=== PATIENT | male | born 1950 | race Hispanic/Latino ===

== ENCOUNTER → 2023-02-11 | Outpatient (CLI) | payer MEDICARE ==
[~2023-02-11] MED LIST: IOHEXOL 350 MG/ML 100ML INFUS..BTL IV ONE
== END | disposition home or self-care (01) ==
LOC: RAH 07:29 → EDUNIT# 08:00
PROVIDERS: ATTEND Internal Medicine Cardiovascular Disease
DX: I65.23 Occlusion and stenosis of bilateral carotid arteries (principal)
CPT/HCPCS: 70496; 71275; 70498; Q9967

== ENCOUNTER 2023-03-12 07:54 | Day surgery (SDC) | payer MEDICARE ==
[2023-03-10 11:41] VITALS: BP 142/58
[2023-03-10 11:44] LABS: BASOPHILS % (AUTO) 0.3 % (0.0-5.0); EOSINOPHILS % (AUTO) 1.3 % (0.0-8.0); LYMPHOCYTES % (AUTO) 33.6 % (21.0-51.0); MEAN CORPUSCULAR HEMOGLOBIN 28.8 pg (27.0-33.0); MEAN CORPUSCULAR HGB CONC 33.3 g/dL (32.0-36.0); MEAN CORPUSCULAR VOLUME 86.7 fL (79-99); MONOCYTES % (AUTO) 11.2 % (3.0-13.0); NEUTROPHILS % (AUTO) 53.1 % (40.0-77.0); PLATELET COUNT (AUTO) 214 K/uL (130-400); RED BLOOD CELL COUNT(AUTO) 4.96 MIL/uL (4.50-6.20); WHITE BLOOD COUNT (AUTO) 7.7 K/uL (4.8-10.8)
[2023-03-10 12:05] LABS: INR 0.96 (0.85-1.15); PROTHROMBIN TIME 10.5 SEC (9.6-11.6)
[2023-03-10 12:06] LABS: PARTIAL THROMBOPLASTIN TIME 27.4 SEC (26.3-35.5)
[2023-03-10 12:14] LABS: CREATININE 0.9 mg/dL (0.5-1.5)
[~2023-03-12] VITALS: Ht 165.1 cm; Wt 75.7 kg
[2023-03-12] VITALS (9 sets, daily range): BP systolic 125–165; BP diastolic 58–80
[~2023-03-12 07:54] MED LIST changes: +AEC81 PO; +ALOG25TA2 PO; +AMLO-257 PO; +ATOR40TA69 PO; +CARB15DR OP; +CHOL100053 PO; +EMPA25TA PO; +GLIP10TA9 PO; -IOHEXOL 350 MG/ML 100ML INFUS..BTL IV ONE; +ISOS30TA92 PO; +LISI20TA24 PO; +LISI40TA9 PO; +METF-446 PO; +METO-409 PO; +NITR0.4T50 SL; +TICA90TA PO
[2023-03-12] MEDS ORDERED: 0.9%NACL 1000ML 1,000 ML IV ONE (09:02)
[2023-03-12] MEDS ORDERED: IOHEXOL-350 50ML VIAL IV ONE (10:26)
[2023-03-12] MEDS ORDERED: MIDAZOLAM HCL 1 MG/ML 2ML VIAL ONE (10:26)
[2023-03-12] MEDS ORDERED: LIDOCAINE HCL 400MG/20ML VIAL ONE (10:26)
[2023-03-12] MEDS ORDERED: IOHEXOL 350 MG/ML 100ML INFUS..BTL IV ONE (10:26)
[2023-03-12] MEDS ORDERED: FENTANYL CITRATE PF 50 MCG/1 ML 2ML VIAL ONE (10:26)
[2023-03-12] MEDS ORDERED: NITROGLYCERIN 50MG VIAL ONE (10:26)
[2023-03-12] MEDS ORDERED: HEPARIN 10,000 UNIT/10ML (1,000 UNIT/ML) VIAL ONE (10:26)
[2023-03-12] MEDS ORDERED: BIVALIRUDIN 250 MG/VIAL IV ONE (10:27)
[2023-03-12] MEDS ORDERED: NICARDIPINE 25MG INJ IV ONE (10:46)
[2023-03-12] MEDS ORDERED: GLUCAGON 1MG KIT 1 MG ML IM PRN (12:30)
[2023-03-12] MEDS ORDERED: DEXTROSE 50%-WATER 50 ML DISP.SYRIN IV PRN (12:30)
[2023-03-12] MEDS ORDERED: 0.9%NACL 1000ML 1,000 ML IV SCH (12:30)
[2023-03-12] MEDS ORDERED: ATROPINE 1MG SYG IVP ONE (12:56)
[2023-03-12] MEDS ORDERED: INSULIN HUMULIN R 100 UNIT/ML 3ML SQ SCH (16:30)
== END 2023-03-12 16:50 | disposition home or self-care (01) ==
LOC: DAH 07:54
PROVIDERS: ATTEND Internal Medicine Cardiovascular Disease
DX: I25.110 Atherosclerotic heart disease of native coronary artery with unstable angina pectoris (principal); I65.23 Occlusion and stenosis of bilateral carotid arteries; I10 Essential (primary) hypertension; E78.5 Hyperlipidemia, unspecified; E11.9 Type 2 diabetes mellitus without complications; I25.5 Ischemic cardiomyopathy; I73.9 Peripheral vascular disease, unspecified; I25.2 Old myocardial infarction; Z79.01 Long term (current) use of anticoagulants; Z79.899 Other long term (current) drug therapy; Z79.82 Long term (current) use of aspirin; Z95.1 Presence of aortocoronary bypass graft; Z86.73 Personal history of transient ischemic attack (TIA), and cerebral infarction without residual deficits; Z90.49 Acquired absence of other specified parts of digestive tract; Z98.890 Other specified postprocedural states
CPT/HCPCS: 80048; 85025; 85610; 85730; 36415; 71045; 93005; 93455; 36223; 75710; 82948; C1887 ×2; C1769 ×3; C1894 ×3; Q9965 ×2; J3010; J3490 ×3; J7030; J1644 ×2; J2250; Q9967; A4215; A4222; A4221; A4663; A4216; A4606; A4223 ×3; 99156; 99157; J0461; J0583

== ENCOUNTER 2025-04-22 22:25 | Inpatient (IN) | payer MEDICARE ==
[~2025-04-22] VITALS: Ht 165.1 cm; Wt 81.8 kg
[~2025-04-22 22:25] MED LIST changes: -CARB15DR OP; -EMPA25TA PO; +GLIP10TA16 PO; -GLIP10TA9 PO; -LISI40TA9 PO; -NITR0.4T50 SL
[2025-04-22 23:05] LABS: BASOPHILS # (AUTO) 0.02 K/uL (0.00-0.20); BASOPHILS % (AUTO) 0.3 % (0.0-5.0); EOSINOPHILS % (AUTO) 2.8 % (0.0-8.0); HEMATOCRIT 45.1 % (42-54); IMMATURE GRANULOCYTE ABSOLUTE 0.02 K/uL (0-1); MEAN CORPUSCULAR HEMOGLOBIN 29.1 pg (27.0-33.0); MEAN CORPUSCULAR HGB CONC 33.3 g/dL (32.0-36.0); MEAN CORPUSCULAR VOLUME 87.4 fL (79-99); MONOCYTES # (AUTO) 0.8 K/uL (0.1-1.0); NEUTROPHILS # (AUTO) 3.1 K/uL (1.8-7.7); NEUTROPHILS % (AUTO) 43.6 % (40.0-77.0); PLATELET COUNT (AUTO) 205 K/uL (130-400); RED BLOOD CELL COUNT(AUTO) 5.16 MIL/uL (4.50-6.20); RED CELL DISTRIBUTION WIDTH 14.6 % (11.0-15.5); WHITE BLOOD COUNT (AUTO) 7.1 K/uL (4.8-10.8)
--- NOTE | 2025-04-22 23:28 | ERN ---
General Chief Complaint: Chest Pain Stated Complaint: CHEST PAIN Time Seen by MD: 22:27 History of Present Illness Initial Comments 75-year-old male who presents for chest pains on and off for the last few days. He reports an epigastric pain that radiates to the lower chest. The pain waxes and wanes. It is nonexertional. He reports that he mostly feels it at night when he lies down. He reports that he thought it was indigestion, but it has since it has been pretty consistent over the last few days he wants to get this checked out. He does have a significant history of CAD status post CABG, hypertension, dyslipidemia, diabetes. He denies any recent dyspnea shortness of breath or dizziness. He has been in his normal state of health otherwise. No cough congestion or fevers. His design manager is Dr. Carroll. Allergies: Coded Allergies: lorazepam (Unverified Allergy, Unknown, 03/10/23) Home Meds Reported Medications Ticagrelor (Brilinta) 90 Mg Tablet, 90 MG PO BID, TAB 08/02/23 Isosorbide Mononitrate (Isosorbide Mononitrate ER) 30 Mg Tab.er.24h, 30 MG PO DAILY, TAB 03/11/23 Alogliptin Benzoate (Alogliptin) 25 Mg Tablet, 25 MG PO DAILY, TAB 03/11/23 Atorvastatin Calcium (LIPITOR) 40 Mg Tablet, 40 MG PO HS, TAB 03/11/23 Cholecalciferol (Vitamin D3) (Vitamin D3) 250 Mcg (56172 Unit) Capsule, 250 MCG PO QWEEK, CAP 03/11/23 Lisinopril (Lisinopril) 20 Mg Tablet, 20 MG PO BID, TAB 03/11/23 Metformin HCl (Metformin HCl) 1,000 Mg Tablet, 1000 MG PO BID, TAB 03/11/23 Glipizide (Glipizide) 10 Mg Tablet, 10 MG PO BID, TAB 03/11/23 Aspirin (ASPIRIN 81 MG ECTAB) 81 Mg Ectab, 81 MG PO DAILY, TAB.EC 03/11/23 Amlodipine Besylate (Amlodipine Besylate) 5 Mg Tablet, 5 MG PO BID, TAB 03/11/23 Metoprolol Succinate (Metoprolol Succinate) 100 Mg Tab.er.24h, 100 MG PO DAILY, TAB 03/11/23 Past Medical History Past Medical History: Diabetes-Type II, High Cholesterol, Heart Disease, Hypertension Past Surgical History: CABG, Other Surgical History Other: CARDIAC STENTS ROS Dictation CONSTITUTIONAL: No chills, no fever, no weakness, no diaphoresis, no malaise. HEAD/FACE: No signs of trauma. EENT: No eye pain, no blurred vision, no tearing, no double vision, no ear pain, no ear discharge, no nose pain, no nasal congestion, no throat pain, no throat swelling, no mouth pain. RESPIRATORY: No cough, no orthopnea, no SOB, no stridor, no wheezing. CARDIOVASCULAR: Chest pain GASTROINTESTINAL/ABDOMINAL: No abdominal pain, no constipation, no diarrhea, no nausea, no vomiting. GENITOURINARY: No abnormal discharge, no dysuria, no frequent urination, no hematuria. No complaints of pain in the genitals. MUSCULOSKELETAL: No back pain, no gout, no joint pain, no joint swelling, no muscle pain, no muscle stiffness, no neck pain. INTEGUMENTARY: No change in color, no change in hair/nails, no dryness, no lesion, no lumps, no rash. NEUROLOGICAL/PSYCH: No anxiety, not depressed, no emotional problem, no headache, no numbness, no pre-existing deficit, no history of seizures, no tremors, no weakness. HEMATOLOGIC/LYMPHATIC: Not anemic, no history of blood clots, no apparent bleeding, no bruising, glands not swollen. All Systems Negative, Except as Noted. Physical Exam Physical Exam Dictation VITAL SIGNS: Reviewed. GENERAL APPEARANCE: Alert, oriented x3, no acute distress. HEAD AND FACE: Non-traumatic. EYES: PERRL, pink conjunctivas, eyelid no trauma, anterior chamber clear. EARS: Pinnas intact and no signs of trauma or erythema. Ear canals clear and no discharge. TMs no erythema. NOSE: No discharge, no bleeding. OROPHARYNX: Mouth normal, teeth no caries, tongue pink. Pharynx clear, no erythema. Tonsils no exudates, no abscesses noted. Mucous membrane moist. NECK: Supple, non-tender, no thyromegaly, no masses, no JVD, no bruits. BREAST: Deferred. CHEST: No tenderness, no crepitus, no paradoxical movement, no retractions. LUNGS: Clear, well-ventilated, symmetric, no rales, no wheezing, no rhonchi, no stridor, good breath sounds bilaterally. HEART: Regular rate, regular rhythm, no murmur, no gallops. VASCULAR: No peripheral edema. ABDOMEN: Soft, positive bowel sounds, nondistended, no guarding, nontender, no rebound, no masses no hepatomegaly, no splenomegaly, no Nguyen's sign, no hernias. RECTAL: Deferred. GENITAL: Deferred. NEUROLOGICAL: Normal speech, gross motor function intact, gross sensory function intact. MUSCULOSKELETAL: Neck nontender, full range of motion, back nontender, full range of motion. EXTREMITIES: Nontender, full range of motion. SKIN: Color pink, dry, no turgor, no rash, no lacerations, no abrasions, no contusions. LYMPHATICS: Deferred. Results Laboratory and Microbiology Lab and Micro Result Laboratory Tests Test 04/22/25 22:57 04/22/25 23:38 White Blood Count 7.1 K/uL (4.8-10.8) 7.1 K/uL (4.8-10.8) Red Blood Count 5.16 MIL/uL (4.50-6.20) 4.81 MIL/uL (4.50-6.20) Hemoglobin 15.0 g/dL (14.0-18.0) 14.1 g/dL (14.0-18.0) Hematocrit 45.1 % (42-54) 42.1 % (42-54) Mean Corpuscular Volume 87.4 fL (79-99) 87.5 fL (79-99) Mean Corpuscular Hemoglobin 29.1 pg (27.0-33.0) 29.3 pg (27.0-33.0) Mean Corpuscular Hemoglobin Concent 33.3 g/dL (32.0-36.0) 33.5 g/dL (32.0-36.0) Red Cell Distribution Width 14.6 % (11.0-15.5) 14.6 % (11.0-15.5) Platelet Count 205 K/uL (130-400) 195 K/uL (130-400) Mean Platelet Volume 9.9 fL (7.5-10.5) 10.0 fL (7.5-10.5) Immature Granulocyte % (Auto) 0.3 % (0-1) 0.3 % (0-1) Neutrophils (%) (Auto) 43.6 % (40.0-77.0) 46.5 % (40.0-77.0) Lymphocytes (%) (Auto) 42.0 % (21.0-51.0) 39.2 % (21.0-51.0) Monocytes (%) (Auto) 11.0 % (3.0-13.0) 10.8 % (3.0-13.0) Eosinophils (%) (Auto) 2.8 % (0.0-8.0) 2.8 % (0.0-8.0) Basophils (%) (Auto) 0.3 % (0.0-5.0) 0.4 % (0.0-5.0) Neutrophils # (Auto) 3.1 K/uL (1.8-7.7) 3.3 K/uL (1.8-7.7) Lymphocytes # (Auto) 3.0 K/uL (1.0-4.8) 2.8 K/uL (1.0-4.8) Monocytes # (Auto) 0.8 K/uL (0.1-1.0) 0.8 K/uL (0.1-1.0) Eosinophils # (Auto) 0.20 K/uL (0.00-0.70) 0.20 K/uL (0.00-0.70) Basophils # (Auto) 0.02 K/uL (0.00-0.20) 0.03 K/uL (0.00-0.20) Absolute Immature Granulocyte (auto 0.02 K/uL (0-1) 0.02 K/uL (0-1) Nucleated Red Blood Cells 0.0 % (0.0-0.19) 0.0 % (0.0-0.19) Sodium Level 139 mmol/L (136-145) Potassium Level 3.8 mmol/L (3.5-5.1) Chloride Level 104 mmol/L (101-111) Carbon Dioxide Level 23 mmol/L (21-32) Blood Urea Nitrogen 15 mg/dL (7-18) Creatinine 1.0 mg/dL (0.5-1.3) Glomerular Filtration Rate Calc 79 mL/min (>90) Random Glucose 174 mg/dL (70-105) H Total Calcium 9.1 mg/dL (8.5-10.1) Total Bilirubin 0.3 mg/dL (0.2-1.0) Direct Bilirubin 0.1 mg/dL (0.0-0.3) Aspartate Amino Transf (AST/SGOT) 11 U/L (10-37) Alanine Aminotransferase (ALT/SGPT) 23 U/L (12-78) Alkaline Phosphatase 89 U/L (50-136) Total Creatine Kinase 118 U/L (21-232) Troponin I High Sensitivity 119 ng/L (4-75) *H 116 ng/L (4-75) *H MB-Fxt-F-Type Natriuretic Peptide 415 pg/mL (0-125) H Total Protein 7.1 g/dL (6.0-8.3) Albumin 4.0 g/dL (3.5-5.0) Lipase 43 U/L (16-77) Activated Partial Thromboplast Time 25.4 SEC (26.3-35.5) L MDM CC: Chest pain Historian: Patient Comorbidities: CAD status post CABG, hypertension, dyslipidemia, diabetes Limitations by social determinants of health: None Differential diagnosis: ACS, indigestion, biliary disease, other. Vital signs: Blood pressure 182/78, respiratory rate of 18, pulse 69, temp 97.7. EKG: Sinus rhythm, rate 71, left axis deviation, left bundle branch block morphology, LVH, Sgarbossa criteria negative, no STEMI. Independently interpre estelle by me. Repeat EKG: Sinus rhythm, rate 64, left axis deviation, left bundle-branch block morphology. LVH. No STEMI. Sgarbossa negative. No changes from previous. Independently interpreted by me. Labs (independently ordered and interpreted by me): Normal CBC. Troponin elevated 119. Electrolytes are stable glucose is stable liver enzymes are stable. Pro BNP mildly elevated. Repeat troponin remained stable. Patient has high-risk, heart score of five. Treatment in ED: Oral aspirin, IV heparin protocol started. Given Maalox. Plan: Admit cardiology workup. ED Course Orders Procedure Category Date Status Time Vital Signs Per CPOE 04/22/25 Transmitted Routine 22:29 Chest 1vw RAD 04/22/25 Taken 22:29 12 Lead Ekg Tracing- EKG 04/22/25 Logged Technical 22:29 Oxygen By Nc/Pulse Ox CPOE 04/22/25 Transmitted 22:29 Maintain Iv CPOE 04/22/25 Transmitted 22:29 Iv Insertion CPOE 04/22/25 Transmitted 22:29 Cardiac Monitoring CPOE 04/22/25 Transmitted 22:29 Pulse Oximetry With CPOE 04/22/25 Transmitted Vs And Prn 22:29 Cbc With Differential LAB 04/22/25 Complete 22:29 Activity: Br W/Brp CPOE 04/22/25 Transmitted With Assist 22:29 Creatine Kinase, Total LAB 04/22/25 Complete 22:29 Troponin I High LAB 04/22/25 Complete Sensitivity 22:29 Urinalysis Profile LAB 04/22/25 Logged 22:29 Basic Metabolic Panel LAB 04/22/25 Complete 22:29 Aspirin 325mg Tab PHA 04/22/25 Complete (Aspirin 325mg Tab) 23:00 Mag/Alum/Simeth 30ml PHA 04/22/25 Complete (Maalox Plus 30ml) 23:00 Hepatic Function Panel LAB 04/22/25 Complete 22:43 Lipase LAB 04/22/25 Complete 22:43 Probnp LAB 04/22/25 Complete 22:57 12 Lead Ekg Tracing- EKG 04/22/25 Logged Technical 23:12 Initiate Heparin JAYY 04/22/25 In Process Treatment Pro 23:25 Cbc With Differential LAB 04/22/25 Complete 23:25 Cbc With Differential LAB 04/23/25 In Process 04:00 Cbc With Differential LAB 04/26/25 Verified 04:00 Cbc With Differential LAB 04/29/25 Verified 04:00 Partial LAB 04/22/25 Complete Thromboplastin Time 23:25 Heparin 5,000 Unit PHA 04/23/25 In Process Vial (Heparin 5,000 U 00:30 Heparin 25,000 PHA 04/23/25 In Process Units/250ml D5w 00:30 Heparin Protocol CPOE 04/22/25 Transmitted Monitoring 23:25 Troponin I High LAB 04/22/25 Complete Sensitivity 23:26 Heparin 5,000 Unit PHA 04/22/25 Complete Vial (Heparin 5,000 U 23:30 Pt And Ptt LAB 04/23/25 Logged 05:45 Current Medications Medications (Trade) Dose Ordered Sig/Balwinder Route PRN Reason Start Time Stop Time Status Last Admin Dose Admin Al Hydroxide/Mg Hydroxide (MAALox PLUS 30ML) 30 ml ONCE ONCE PO 04/22/25 23:00 04/22/25 23:01 DC 04/22/25 23:36 Aspirin (Aspirin 325mg Tab) 325 mg ONCE ONCE PO 04/22/25 23:00 04/22/25 23:01 DC 04/22/25 23:36 Heparin Sodium (Porcine) (HEParin 5,000 UNIT VIAL) *calculation based on ACTUAL B... AD PRN IV HEPARIN PROTOCOL 04/23/25 00:30 05/23/25 00:29 Heparin Sodium (Porcine) (HEParin 5,000 UNIT VIAL) 6,000 unit ONCE ONCE IV 04/22/25 23:30 04/22/25 23:32 DC 04/22/25 23:36 Heparin Sodium/ Dextrose 250 ml @ 0 mls/hr Q6H IV 04/23/25 00:30 05/23/25 00:29 04/22/25 23:44 Vital Signs Date Time Temp Pulse Resp B/P (MAP) Pulse Ox O2 Delivery O2 Flow Rate FiO2 04/23/25 00:10 70 18 98 Room Air* 0 21 04/22/25 23:03 64 18 Room Air* 0 21 04/22/25 22:27 97.7 69 18 182/78 98 Room Air DX & DISP Disposition: Inpatient Departure Impression: Primary Impression: NSTEMI (non-ST elevated myocardial infarction) Critical Time: 30 minutes (Critical Care Procedure NoteAuthorized and Performed by: meTotal critical care time: Approximately 36 minutesDue to a high probability of clinically significant, life threatening deterioration, the patient required my highest level of preparedness to intervene emergently and I personally spent this critical care time directly and personally managing the patient. This critical care time included obtaining a history; examining the patient; pulse oximetry; ordering and review of studies; arranging urgent treatment with development of a management plan; evaluation of patient's response to treatment; frequent reassessment; and, discussions with other providers.This critical care time was performed to assess and manage the high probability of imminent, life-threatening deterioration that could result in multi-organ failure. It was exclusive of separately billable procedures and treating other patients and teaching time.Please see MDM section and the rest of the note for further information on patient assessment and treatment.) Condition: Stable Referrals: JANE MCCLAIN (PCP) ASTER AVILA DO Apr 22, 2025 23:28
[2025-04-22] MEDS: MAG/ALUM/SIMETH 30 ML UDCUP PO ONE (23:36)
[2025-04-22] MEDS: ASPIRIN 325MG TAB PO ONE (23:36)
[2025-04-22] MEDS: HEParin 5,000 UNIT VIAL IV ONE (23:36)
[2025-04-22] MEDS: HEParin 25,000 UNITS/250ML D5W 250 ML IV SCH (23:44)
[2025-04-22 23:45] LABS: BASOPHILS # (AUTO) 0.03 K/uL (0.00-0.20); BASOPHILS % (AUTO) 0.4 % (0.0-5.0); EOSINOPHILS % (AUTO) 2.8 % (0.0-8.0); HEMATOCRIT 42.1 % (42-54); IMMATURE GRANULOCYTE ABSOLUTE 0.02 K/uL (0-1); LYMPHOCYTES # (AUTO) 2.8 K/uL (1.0-4.8); LYMPHOCYTES % (AUTO) 39.2 % (21.0-51.0); MEAN CORPUSCULAR HEMOGLOBIN 29.3 pg (27.0-33.0); MEAN CORPUSCULAR HGB CONC 33.5 g/dL (32.0-36.0); MEAN CORPUSCULAR VOLUME 87.5 fL (79-99); MONOCYTES # (AUTO) 0.8 K/uL (0.1-1.0); MONOCYTES % (AUTO) 10.8 % (3.0-13.0); NEUTROPHILS # (AUTO) 3.3 K/uL (1.8-7.7); NEUTROPHILS % (AUTO) 46.5 % (40.0-77.0); PLATELET COUNT (AUTO) 195 K/uL (130-400); RED BLOOD CELL COUNT(AUTO) 4.81 MIL/uL (4.50-6.20); RED CELL DISTRIBUTION WIDTH 14.6 % (11.0-15.5); WHITE BLOOD COUNT (AUTO) 7.1 K/uL (4.8-10.8)
[2025-04-22 23:48] LABS: POTASSIUM 3.8 mmol/L (3.5-5.1)
[2025-04-23] VITALS (9 sets, daily range): BP systolic 124–165; BP diastolic 59–77; PULSE 60–66; RESP 16–24; TEMP 97.6–98.3; O2SAT 96–98
[2025-04-23 00:13] LABS: BILIRUBIN,DIRECT 0.1 mg/dL (0.0-0.3); BILIRUBIN,TOTAL 0.3 mg/dL (0.2-1.0); TOTAL PROTEIN, SERUM 7.1 g/dL (6.0-8.3)
[2025-04-23] MEDS ORDERED: HEParin 5,000 UNIT VIAL IV PRN (00:30)
[2025-04-23 00:45] LABS: ADD UA MICROSCOPIC YES; APPEARANCE,URINE CLEAR (CLEAR); BILIRUBIN,URINE NEGATIVE (NEGATIVE); COLOR,URINE LIGHT-YELLOW (YELLOW); GLUCOSE, URINE (UA) >=1000 mg/dL (NEGATIVE); KETONES,URINE NEGATIVE (NEGATIVE); LEUKOCYTE ESTERASE ,URINE NEGATIVE Leu/uL (NEGATIVE); NITRATE,URINE 2+ (NEGATIVE); OCCULT BLOOD,URINE NEGATIVE (NEGATIVE); PROTEIN,URINE NEGATIVE (NEGATIVE); UROBILINOGEN,URINE 0.2 mg/dL (0.2-1.0)
[2025-04-23 01:14] LABS: BACTERIA,URINE FEW /HPF (None Seen); MUCUS,URINE RARE LPF (None Seen); SQUAMOUS EPITHELIAL CELL,UR RARE /HPF (0-2); WBC,URINE 0-1 /HPF (0-1)
--- NOTE | 2025-04-23 01:30 | HP ---
[facility] Date of Service: Apr 23, 2025 Time of Service: 01:29 PCP: Dr. Sebastián Morrell Outpatient lav crewman: Dr. Bradley Carroll. Attending/supervising physicians: Dr. Thornton and Dr. Black HISTORY OF PRESENT ILLNESS: Mr. Nunez wayne 75-year-old male with a history of DM type 2, hypercholesteremia, hypertension, CAD s/p cardiac stents, CABG, and Left carotid endarterectomy in 08/02/2023 who presented to [facility] for evaluation of chest pains on and off for the last few days. He reported an epigastric pain that radiates to the lower chest. The pain waxes and wanes, is nonexertional. He reported that he mostly feels it at night when he lies down. He reported that he thought it was indigestion, but it has since it has been pretty consistent over the last few days which prompted the ED visit. He denied any recent dyspnea, shortness of breath, dizziness, cough, congestion, or fever. He has been in his normal state of health otherwise. CBC WNL. Remarkable labs: Initial troponin 119, repeat troponin 116, BNP 415, glucose 174, GFR 79, PT 25.4, UA positive for nitrites. EKG: Sinus rhythm, rate 71 bpm, left axis deviation, left BBB morphology, LVH, no STEMI. In ED the patient received [id number] mg, Maalox, heparin IV push and heparin drip. ED physician requested patient be admitted with the diagnosis of NSTEMI. I assessed the patient at bedside in ER 15. The patient was sleeping, breathing was even, unlabored, in no distress, woke up to my voice. was at bedside. I informed them of labs, diagnostics, and plan of care. They verbalized u nderstanding and are in agreement with the plan. Plan and assessment are listed below. REVIEW OF SYSTEMS 12-point ROS reviewed with the patient. All pertinent positives mentioned above. Otherwise negative, noncontributory, non-pertinent. PAST MEDICAL HISTORY: As mentioned above PAST SURGICAL HISTORY: CABG, cardiac stents Left carotid endarterectomy by Dr. Vida Dowd on 08/02/2023 PAST SOCIAL HISTORY: Denied alcohol, tobacco, illicit drug use FAMILY HISTORY: Noncontributory Coded Allergies: lorazepam (Unverified Allergy, Unknown, 03/10/23) PHYSICAL EXAM GENERAL APPEARANCE: The patient is awake, alert, and oriented, in no acute cardiopulmonary distress. NEUROLOGICAL: Cranial nerves II-XII grossly intact. Motor is 5/5 in bilateral upper and lower extremities proximal to distal. No sensory deficits. HEENT: Face is symmetric. Pupils are equal and reactive. Extraocular movements are intact. NECK: Supple. No JVD. No thyromegaly. No submental, submandibular, pre- /postauricular, occipital or supraclavicular lymphadenopathy. CHEST: Normal chest expansion. No Telemetry. LUNGS: Absence of any rales, rhonchi or any wheezing. CARDIOVASCULAR: Regular. S1 and S2 normal. No appreciable rubs, murmurs or gallops. ABDOMEN: Obese. Soft, nontender, and nondistended. There is no rebound, voluntary guarding, or rigidity. : Deferred. No Valdes. EXTREMITIES: Non-edematous and not cyanotic. No clubbing. Good capillary refill. SKIN: No skin breakdown. Vital Sign (Last 24 Hours) 04/22/25 04/23/25 22:27 00:25 Temp 97.7 Pulse 60 Resp 18 B/P (MAP) 148/59 Pulse Ox 98 O2 Delivery Room Air* O2 Flow Rate 0 FiO2 21 LABS: Laboratory: Test 04/23/25 00:34 04/22/25 23:38 04/22/25 22:57 Range/Units Urine Color LIGHT-YELLOW YELLOW Urine Appearance CLEAR CLEAR Urine pH 5.0 5.0-8.0 Urine Specific [place] 1.017 1.001-1.031 Urine Protein NEGATIVE NEGATIVE mg/dL Urine Glucose (UA) >=1000 H NEGATIVE mg/dL Urine Ketones NEGATIVE NEGATIVE mg/dL Urine Occult Blood NEGATIVE NEGATIVE Urine Nitrate 2+ H NEGATIVE Urine Bilirubin NEGATIVE NEGATIVE mg/dL Urine Urobilinogen 0.2 0.2-1.0 mg/dL Urine Leukocyte Esterase NEGATIVE NEGATIVE Avinash/uL Urine RBC None 0-1 /HPF Urine WBC 0-1 0-1 /HPF Urine Squamous Epithelial Cells RARE 0-2 /HPF Urine Bacteria FEW None Seen /HPF White Blood Count 7.1 4.8-10.8 K/uL Red Blood Count 4.81 4.50-6.20 MIL/uL Hemoglobin 14.1 14.0-18.0 g/dL Hematocrit 42.1 42-54 % Mean Corpuscular Volume 87.5 79-99 fL Mean Corpuscular Hemoglobin 29.3 27.0-33.0 pg Mean Corpuscular Hemoglobin Concent 33.5 32.0-36.0 g/dL Red Cell Distribution Width 14.6 11.0-15.5 % Platelet Count 195 130-400 K/uL Mean Platelet Volume 10.0 7.5-10.5 fL Immature Granulocyte % (Auto) 0.3 0-1 % Neutrophils (%) (Auto) 46.5 40.0-77.0 % Lymphocytes (%) (Auto) 39.2 21.0-51.0 % Monocytes (%) (Auto) 10.8 3.0-13.0 % Eosinophils (%) (Auto) 2.8 0.0-8.0 % Basophils (%) (Auto) 0.4 0.0-5.0 % Neutrophils # (Auto) 3.3 1.8-7.7 K/uL Lymphocytes # (Auto) 2.8 1.0-4.8 K/uL Monocytes # (Auto) 0.8 0.1-1.0 K/uL Eosinophils # (Auto) 0.20 0.00-0.70 K/uL Basophils # (Auto) 0.03 0.00-0.20 K/uL Absolute Immature Granulocyte (auto 0.02 0-1 K/uL Nucleated Red Blood Cells 0.0 0.0-0.19 % Activated Partial Thromboplast Time 25.4 L 26.3-35.5 SEC Troponin I High Sensitivity 116 *H 4-75 ng/L Sodium Level 139 136-145 mmol/L Potassium Level 3.8 3.5-5.1 mmol/L Chloride Level 104 101-111 mmol/L Carbon Dioxide Level 23 21-32 mmol/L Blood Urea Nitrogen 15 7-18 mg/dL Creatinine 1.0 0.5-1.3 mg/dL Glomerular Filtration Rate Calc 79 >90 mL/min Random Glucose 174 H 70-105 mg/dL Total Calcium 9.1 8.5-10.1 mg/dL Total Bilirubin 0.3 0.2-1.0 mg/dL Direct Bilirubin 0.1 0.0-0.3 mg/dL Aspartate Amino Transf (AST/SGOT) 11 10-37 U/L Alanine Aminotransferase (ALT/SGPT) 23 12-78 U/L Alkaline Phosphatase 89 50-136 U/L Total Creatine Kinase 118 21-232 U/L MA-Clh-K-Type Natriuretic Peptide 415 H 0-125 pg/mL Total Protein 7.1 6.0-8.3 g/dL Albumin 4.0 3.5-5.0 g/dL Lipase 43 16-77 U/L Current Medications Medications (Trade) Dose Ordered Sig/Balwinder Route PRN Reason Start Time Stop Time Status Last Admin Dose Admin Heparin Sodium (Porcine) (HEParin 5,000 UNIT VIAL) *calculation based on ACTUAL B... AD PRN IV HEPARIN PROTOCOL 04/23/25 00:30 05/23/25 00:29 Heparin Sodium/ Dextrose 250 ml @ 0 mls/hr Q6H IV 04/23/25 00:30 05/23/25 00:29 04/22/25 23:44 13.94 MLS/HR DIAGNOSTICS / RADIOLOGY: [ ] ASSESSMENT: NSTEMI, POA Volume overload, BNP 415, POA, no prior echo for evaluation of EF Acute complicated cystitis, POA Acute on chronic kidney disease stage 2, GFR 79 (GFR 80-94 in 2022) Coronary artery disease s/p cardiac stents and CABG Diabetes mellitus with hyperglycemia Hypertension Hypercholesteremia History of left internal carotid artery stenosis s/p left carotid endarterectomy by Dr. Vida Dowd on 08/02/2023 Obesity, BMI 29.9 PLAN: -Admit to medical floor with continuous telemetry monitoring. -Continue heparin drip per protocol. -Reconciled/ started home medications: Brilinta, amlodipine, isosorbide mononitrate, lisinopril, metoprolol succinate, aspirin, atorvastatin, vitamin D3. -Lasix 40 mg IV daily. -Hold home medication glipizide, metformin, alogliptin. -Glucometer checks before meals and at bedtime with insulin regular sliding scale. -Troponin levels and EKG series. -Cardiology consult in the am. -2D echo in a.m. with heart clinic to read. -PRN medications for pain management, fever, N/V, constipation, hypertension. -Oxygen supplement as needed to maintain oxygen levels equal to or greater than 92% -Strict I&O. -Fluid restriction 1,200 mls in 24 hours. -Blood pressure checks every 4 hours and as needed. -Monitor renal and liver function. -Monitor electrolytes and treat accordingly PRN -AM labs. -GI and DVT prophylaxis: Pepcid and heparin -Further plan/orders per hospitalization course. ADVANCED CARE PLANNING 1. Which of the following were discussed? Hospice Care - No Therapeutic options - Yes Advance Directives - Yes Other discussions - 2. Discussed with who? The patient 3. Voluntary nature of this service was explained to the patient? Yes 4. Amount of time spent - ___Over 40 minutes____ 5. Reviewed by Physician? (if this service was performed by ANEL) Yes ADDENDUM: ATTENDING PHYSICIAN ATTESTATION: I have reviewed the [facility]'s plan. I have independently seen, reviewed the chart and made my own assessment of the patient. See my addendum for updates to the [facility]'s medical plan MD NATHANIEL Yao [facility] Apr 23, 2025 01:30 BYRON BLACK MD Apr 23, 2025 14:13
[2025-04-23] MEDS ORDERED: doCUSate SODIUM 100 MG CAP PO PRN (02:30)
[2025-04-23] MEDS ORDERED: acetaMINOPHEN 650 MG SUPPOSITORY RC PRN (02:30)
[2025-04-23] MEDS ORDERED: ondanSETRON 4MG INJ IVP PRN (02:30)
[2025-04-23] MEDS ORDERED: acetaMINOPHEN 325 MG TAB PO PRN (02:30)
[2025-04-23] MEDS ORDERED: LAbetaLOL 20MG SYG IV PRN (02:30)
[2025-04-23] MEDS ORDERED: LACTULOSE 20 GM/30 ML UDCUP PO PRN (02:30)
[2025-04-23] MEDS: cefTRIAXone 2GM VIAL IVPB SCH (03:12)
[2025-04-23] MEDS: INSULIN humuLIN R 100 UNIT/ML 3ML SQ SCH (06:02)
--- NOTE | 2025-04-23 06:24 | EKG ---
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 : 1950 Requested By: CHARMAINE ARMSTRONG Order Number: [id number] Reading MD: Bradley Carroll Measurements Intervals [place] Rate: 62 P: 47 [place]: 128 QRS: -25 QRSD: 122 T: 117 QT: 432 QTc: 438 Interpretive Statements Normal sinus rhythm Nonspecific intraventricular conduction delay ST & T wave abnormality, consider lateral ischemia Compared to ECG 07/30/2023 12:25:24 Intraventricular conduction delay now present Possible ischemia now present Left bundle-branch block no longer present ST (T wave) deviation still present Electronically Signed On 04-23-2025 17:19:00 CDT by Bradley Carroll Please click the below link to view image of tracing.
[2025-04-23 06:38] LABS: BASOPHILS # (AUTO) 0.03 K/uL (0.00-0.20); BASOPHILS % (AUTO) 0.4 % (0.0-5.0); EOSINOPHILS # (AUTO) 0.24 K/uL (0.00-0.70); EOSINOPHILS % (AUTO) 3.3 % (0.0-8.0); IMMATURE GRANULOCYTE ABSOLUTE 0.03 K/uL (0-1); LYMPHOCYTES # (AUTO) 2.9 K/uL (1.0-4.8); LYMPHOCYTES % (AUTO) 39.8 % (21.0-51.0); MEAN CORPUSCULAR HEMOGLOBIN 29.3 pg (27.0-33.0); MEAN CORPUSCULAR HGB CONC 34.3 g/dL (32.0-36.0); MEAN CORPUSCULAR VOLUME 85.4 fL (79-99); MONOCYTES # (AUTO) 0.8 K/uL (0.1-1.0); MONOCYTES % (AUTO) 10.5 % (3.0-13.0); NEUTROPHILS # (AUTO) 3.4 K/uL (1.8-7.7); NEUTROPHILS % (AUTO) 45.6 % (40.0-77.0); PLATELET COUNT (AUTO) 196 K/uL (130-400); RED BLOOD CELL COUNT(AUTO) 4.92 MIL/uL (4.50-6.20); RED CELL DISTRIBUTION WIDTH 14.6 % (11.0-15.5); WHITE BLOOD COUNT (AUTO) 7.4 K/uL (4.8-10.8)
--- NOTE | 2025-04-23 06:43 | EKG ---
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: [id number] : 1950 Requested By: ASTER AVILA Order Number: [id number] Reading MD: Bradley Carroll Measurements Intervals [place] Rate: 71 P: 38 SD: 170 QRS: -53 QRSD: 147 T: 133 QT: 424 QTc: 459 Interpretive Statements Sinus rhythm Nonspecific IVCD with LAD LVH with secondary repolarization abnormality Compared to ECG 07/30/2023 12:25:24 Intraventricular conduction delay now present Left ventricular hypertrophy now present Early repolarization now present Left bundle-branch block no longer present ST (T wave) deviation no longer present Electronically Signed On 04-23-2025 17:18:52 CDT by Bradley Carroll Please click the below link to view image of tracing.
--- NOTE | 2025-04-23 06:44 | EKG ---
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
[2025-04-23 06:49] LABS: INR 0.99 (0.85-1.15); PROTHROMBIN TIME 10.5 SEC (9.6-11.6)
[2025-04-23 07:35] LABS: PARTIAL THROMBOPLASTIN TIME > 139.0 SEC (26.3-35.5)
[2025-04-23] MEDS ORDERED: glipiZIDE 5MG TABLET PO SCH (09:00)
--- NOTE | 2025-04-23 09:13 | HMCIMG ---
CHEST 1VW HISTORY: Chest pain COMPARISON: None FINDINGS: A frontal projection of the chest was obtained. No acute pulmonary infiltrates is seen. The heart is borderline enlarged. Poststernotomy changes are seen. Degenerative changes are seen. Aortic calcifications are seen. IMPRESSION: 1. No acute pulmonary infiltrate is seen.
[2025-04-23] MEDS: ISOSORBIDE MONO 30MG SR TAB PO SCH (09:38)
[2025-04-23] MEDS: amLODIPine 5 MG TAB PO SCH (09:38)
[2025-04-23] MEDS: LISINOPRIL 20 MG TABLET PO SCH (09:39)
[2025-04-23] MEDS: metOPROLol sucCINATE 50 MG TAB.SR.24H PO SCH (09:39)
[2025-04-23] MEDS: TICAGrelor 90 MG TABLET PO SCH (09:39)
[2025-04-23] MEDS: furoSEMIDE 40MG VIAL IV SCH (09:39)
[2025-04-23] MEDS: ASPIRIN 81MG CHEW TAB PO SCH (09:39)
[2025-04-23] MEDS: FAMOTIDINE 20MG VIAL IV SCH (09:39)
--- NOTE | 2025-04-23 09:51 | NUR ---
DCP: HOME Pt currently lives with katlyn Nunez [phone]. Pt does not have any insecurities with food, usp, and/or utilities. Pt does states that he has a cane at home but does not use it regularly. Pt does not have any home health or provider services. Pt is able to complete ADLs independently. PCP is Dr. Morrell and uses [facility] or [place] for any RX needs. At [place] pt will go home and family will assist with transportation. Addendum: 04/23/25 at 0954 by DOMINGO ALEXANDER SS Amended: Links added.
--- NOTE | 2025-04-23 11:08 | CONS ---
[facility] CARDIOLOGY CONSULTATION REPORT Cardiology consultation note dictated for Bradley Carroll MD Date Patient Seen: Apr 23, 2025 Requesting Physician: AL Quigley Reason for Consultation: Chest pain, elevated troponin History of Present Illness: This is a 75-year-old male with a past medical history of hypertension, dyslipidemia, type 2 diabetes mellitus, CAD s/p CABG x4 in 2002, occluded SVG connecting to the left circumflex successfully stented in 11/2018, PTCA and stent to the ostial and proximal left subclavian with 8 x 27 mm stent deployed to 12 mm at ostium on 12/02/2018, STEMI on 12/23/2022 with LHC demonstrating 3/4 grafts occluded but patent ESCALERA, with intervention on a 90% lesion in the proximal SVG to OM (3.5 x 24 mm synergy stent), proximal to a patent stent to the graft in 2018 with incompletely imaged ESCALERA and left subclavian stent, left CEA on 08/02/2023 with carotid Doppler on 03/28/2025 with no significant narrowing of the carotid vessels, ischemic cardiomyopathy with a previous EF of 30% in 11/2018, 2D echo on 01/25/2025 with an EF of 60-65%, normal global wall motion with grade 1 diastolic dysfunction, questionable TIA in 07/2020, and PTSD who presented to the ED with complaints of chest pain. Cardiology has been consulted for chest pain. The patient endorsed eating approximately 5 chile pequin with his three meals per day for one week. He noticed over the last 3-4 days he began to experience nonradiating, epigastric discomfort described as a burning sensation that can last for 20 minutes. Symptoms occurred after eating and when laying flat. Symptoms are reduced by Sprite. Yesterday, he developed epigastric discomfort with an 8/10 intensity with associated diaphoresis. He denied nausea or vomiting. Troponin of 119, 116, and 139. EKG demonstrated NSR with a hr of 62bpm, with IVCD, and nonspecific T wave abnormalities consistent with prior EKG on 03/10/2023. He currently denies chest pain, chest pressure, palpitations, dizziness, shortness of breath, orthopnea, PND, nausea or vomiting. Past Medical History: As per HPI and summarized below Past Surgical History: CABG x4 in 2002 Left CEA on 08/02/2023 Family History: Noncontributory Social History: The patient lives with his . Habits: The patient denies alcohol, tobacco, or illicit drug use. Home Meds: Aspirin 81 mg daily Ticagrelor 90 mg b.i.d. Atorvastatin 40 mg nightly Metoprolol succinate 100 mg daily Isosorbide mononitrate ER 30 mg daily Lisinopril 20 mg b.i.d. Amlodipine 5 mg b.i.d. Vitamin D3 250 mcg every week Metformin 1000 mg b.i.d. Glipizide 10 mg b.i.d. Alogliptin benzoate 25 mg daily Current Meds: Medications Dose Ordered Sig/Balwinder Start Time Stop Time Status Last Admin Heparin Sodium (Porcine) *calculation based on ACTUAL B... AD PRN 04/23/25 00:30 05/23/25 00:29 Heparin Sodium/ Dextrose 250 ml @ 0 mls/hr Q6H 04/23/25 00:30 05/23/25 00:29 04/22/25 23:44 Aspirin 81 mg DAILY 04/23/25 09:00 05/23/25 08:59 04/23/25 09:39 Acetaminophen 650 mg Q6H PRN 04/23/25 02:30 05/23/25 02:29 Acetaminophen 650 mg Q6H PRN 04/23/25 02:30 05/23/25 02:29 Lactulose 20 gm Q6H PRN 04/23/25 02:30 05/23/25 02:29 Docusate Sodium 100 mg BID PRN 04/23/25 02:30 05/23/25 02:29 Ondansetron HCl 4 mg Q6H PRN 04/23/25 02:30 05/23/25 02:29 Labetalol HCl 10 mg Q2H PRN 04/23/25 02:30 05/23/25 02:29 Insulin Human Regular INSULIN SLIDING SCAL... ACHS 04/23/25 07:30 05/23/25 07:29 Atorvastatin Calcium 40 mg HS 04/23/25 21:00 05/23/25 20:59 Ceftriaxone Sodium 2 gm Q24H 04/23/25 02:30 05/03/25 02:29 04/23/25 03:12 Amlodipine Besylate 5 mg BID 04/23/25 09:00 05/23/25 08:59 04/23/25 09:38 Isosorbide Mononitrate 30 mg DAILY 04/23/25 09:00 05/23/25 08:59 04/23/25 09:38 Lisinopril 20 mg BID 04/23/25 09:00 05/23/25 08:59 04/23/25 09:39 Ticagrelor 90 mg BID 04/23/25 09:00 05/23/25 08:59 04/23/25 09:39 Home Med QWEEK 04/23/25 09:00 05/23/25 08:59 Metoprolol Succinate 100 mg DAILY 04/23/25 09:00 05/23/25 08:59 04/23/25 09:39 Furosemide 40 mg DAILY 04/23/25 09:00 05/23/25 08:59 04/23/25 09:39 Famotidine 20 mg BID 04/23/25 09:00 05/23/25 08:59 04/23/25 09:39 Review of Systems: CONST: No fever, fatigue, or weight changes. EYES: No recent vision problems. ENT: No congestion, ear pain, or sore throat. C/V: No chest pain, palpitations, or edema. RESP: No cough, congestion, wheezing or shortness of breath. GI: No abdominal pain, nausea, vomiting, constipation, or diarrhea. : No incontinence or dysuria. SKIN: No rash. NEURO: No headache, focal numbness or weakness, dizziness, or seizures. PSYCH: No depression or anxiety. HEME: No abnormal bruising or bleeding. LYMPH: No swollen glands. Physical Examination: GENERAL: No acute distress. HEAD: Normal with no signs of head trauma. EYES: PERRLA, EOMI, conjunctiva and sclera normal. ENT: Hearing grossly intact, normal oropharynx. NECK: Supple without JVD. There is no tenderness, lymphadenopathy, or masses. No thyromegaly. Normal carotid upstrokes without bruits. LUNGS: Crackles to bases bilaterally. HEART: Normal rate and rhythm. Normal S1 and S2 without murmurs, gallop or rub. VASC: Peripheral pulses +2 bilaterally. ABD: Bowel sounds normal, soft, nontender, no masses, no organomegaly. No kitty ble bruits. : Not examined LYMPH: No lymphadenopathy noted. EXT: No clubbing, cyanosis or edema. SKIN: No rashes or lesions noted. NEURO: Awake, alert, and oriented x3. No focal sensory or strength deficits noted. Vital Signs (last 8hr) Date Time Temp Pulse Resp B/P (MAP) Pulse Ox O2 Delivery O2 Flow Rate FiO2 04/23/25 07:40 98.2 60 17 153/77 98 Room Air 04/23/25 05:34 141/59 04/23/25 03:12 96 Room Air* 0 21 04/23/25 03:10 98.1 64 20 165/73 99 Room Air Laboratory: Hematology Labs: Test 04/23/25 06:29 Range/Units White Blood Count 7.4 4.8-10.8 K/uL Red Blood Count 4.92 4.50-6.20 MIL/uL Hemoglobin 14.4 14.0-18.0 g/dL Hematocrit 42.0 42-54 % Mean Corpuscular Volume 85.4 79-99 fL Mean Corpuscular Hemoglobin 29.3 27.0-33.0 pg Mean Corpuscular Hemoglobin Concent 34.3 32.0-36.0 g/dL Red Cell Distribution Width 14.6 11.0-15.5 % Platelet Count 196 130-400 K/uL Mean Platelet Volume 9.9 7.5-10.5 fL Immature Granulocyte % (Auto) 0.4 0-1 % Neutrophils (%) (Auto) 45.6 40.0-77.0 % Lymphocytes (%) (Auto) 39.8 21.0-51.0 % Monocytes (%) (Auto) 10.5 3.0-13.0 % Eosinophils (%) (Auto) 3.3 0.0-8.0 % Basophils (%) (Auto) 0.4 0.0-5.0 % Neutrophils # (Auto) 3.4 1.8-7.7 K/uL Lymphocytes # (Auto) 2.9 1.0-4.8 K/uL Monocytes # (Auto) 0.8 0.1-1.0 K/uL Eosinophils # (Auto) 0.24 0.00-0.70 K/uL Basophils # (Auto) 0.03 0.00-0.20 K/uL Absolute Immature Granulocyte (auto 0.03 0-1 K/uL Nucleated Red Blood Cells 0.0 0.0-0.19 % Chemistry Labs: Test 04/23/25 10:23 04/23/25 06:29 04/22/25 22:57 Range/Units Whole Blood Glucose 203 #H 70-110 MG/DL Troponin I High Sensitivity 139 *H 4-75 ng/L Sodium Level 139 136-145 mmol/L Potassium Level 3.8 3.5-5.1 mmol/L Chloride Level 104 101-111 mmol/L Carbon Dioxide Level 23 21-32 mmol/L Blood Urea Nitrogen 15 7-18 mg/dL Creatinine 1.0 0.5-1.3 mg/dL Glomerular Filtration Rate Calc 79 >90 mL/min Random Glucose 174 H 70-105 mg/dL Total Calcium 9.1 8.5-10.1 mg/dL Total Bilirubin 0.3 0.2-1.0 mg/dL Direct Bilirubin 0.1 0.0-0.3 mg/dL Aspartate Amino Transf (AST/SGOT) 11 10-37 U/L Alanine Aminotransferase (ALT/SGPT) 23 12-78 U/L Alkaline Phosphatase 89 50-136 U/L Total Creatine Kinase 118 21-232 U/L SL-Rvy-Z-Type Natriuretic Peptide 415 H 0-125 pg/mL Total Protein 7.1 6.0-8.3 g/dL Albumin 4.0 3.5-5.0 g/dL Lipase 43 16-77 U/L Coagulation Labs: Test 04/23/25 06:29 Range/Units Prothrombin Time 10.5 9.6-11.6 SEC Prothromb Time International Ratio 0.99 0.85-1.15 Activated Partial Thromboplast Time > 139.0 #*H 26.3-35.5 SEC Diagnostics / Radiology: Impression and Plan: Atypical chest pain Acute on chronic combined systolic and diastolic congestive heart failure Hypertension Dyslipidemia Type 2 diabetes mellitus CAD s/p CABG x4 in 2002 Occluded SVG connecting to the LCx successfully stented in 11/2018 PTCA/stent to the ostial and proximal Lt subclavian with 8 x 27 mm stent deployed to 12 mm at ostium on 12/02/2018 STEMI on 12/23/2022 with LHC demonstrating 3/4 grafts occluded but patent ESCALERA, with intervention on a 90% lesion in the proximal SVG to OM (3.5 x 24 mm synergy stent), proximal to a patent stent to the graft in 2018 with incompletely imaged ESCALERA and left subclavian stent Left CEA on 08/02/2023 with carotid Doppler on 03/28/2025 with no significant narrowing of the carotid vessels Ischemic cardiomyopathy with a previous EF of 30% in 11/2018 2D echo on 01/25/2025 with an EF of 60-65%, normal global wall motion with grade 1 diastolic dysfunction Questionable TIA in 07/2020 PTSD Atypical chest pain Troponin of 119, 116, and 139 EKG demonstrated NSR with a hr of 62bpm, with IVCD, and nonspecific T wave abnormalities consistent with prior EKG on 03/10/2023 -Continue home medications of Aspirin 81 mg daily, Ticagrelor 90 mg b.i.d., Atorvastatin 40 mg nightly, Metoprolol succinate 100 mg daily, Isosorbide mononitrate ER 30 mg daily, Lisinopril 20 mg b.i.d., and Amlodipine 5 mg b.i.d. -Can discontinue Heparin infusion -Further recommendations pending Echocardiogram results Acute on chronic combined systolic and diastolic congestive heart failure Pro BNP 415, Chest x-ray without acute findings The patient is being diureses with Lasix 40mg IV daily -Continue GDMT: Metoprolol succinate 100 mg daily and Lisinopril 20 mg b.i.d. Patient seen and examined by myself Dr. Carroll. Do not think any further cardiac workup is warranted. Ejection fraction is maintained. Patient is asymptomatic in this appears to be GERD in nature. A prescription for pantoprazole 40 mg daily was given to patient and he should be dismissed home today. This was discussed with nursing and Dr. Davila will be notified DANIEL NEWBERRY Apr 23, 2025 11:08 BRADLEY CARROLL MD Apr 23, 2025 17:53
--- NOTE | 2025-04-23 16:55 | HMCSR ---
APPROVED REPORT EXAM: Two-dimensional and M-mode echocardiogram with Doppler and color Doppler. INDICATION ICD: elevated troponin Chest Pain 2D Dimensions RVDd3.3 cmLVEF(%)44.0 (>50%)LVED Vol(simp.)131.0 mL IVSd0.7 (0.7-1.1cm)FS(%)22 %LVES Vol(simp.)77.0 mL LVDd5.8 (3.8-5.6cm)LA (2D)4.2 (1.6-4.0cm)LVEF(%, simp.)41 % PWd0.8 (0.7-1.1cm)Ao Root(2D)2.8 (2.0-3.7cm)LA ESV INDEX (BP)34.99 mL/m2 LVDs4.5 (2.5-4.0cm)LVOT diam2.0 (1.8-2.4cm) IVC diam0.9 cm Deformation Strain Apical 4-11.3 % Apical 2-10.6 % Apical 3-10.5 % Global Strain-10.8 % M-Mode Dimensions EPSS1.7 cm LA (MM)4.6 (1.6-4.0cm) Ao Root(MM)2.5 (2.0-3.7cm) Aortic Valve AoV Vmax1.4 m/Doris Peak GR7.5 mmHgLVOT Vmax1.0 m/s AoV VTI0.3 mAo Mean GR4.3 mmHgLVOT VTI0.22 m RICCO (VMAX)2.29 cm2AVA (VTI) 2.1 cm2 Mitral Valve MV E Vmax68.3 cm/sDECEL Kgsj419 ms MV A Rvjw431.1 cm/sP 1/2 T91 ms E/A ratio0.7MVA (PHT)2.4 cm2 TDI E/E' Fenzbi68.3E/E' Vbpaksh12.5 Medial E' Peak V3.54 cm/sLateral E' Peak V6.49 cm/s Left Ventricle The left ventricle is normal size. Regional wall motion abnormalities cannot be excluded. There is no rmal left ventricular wall thickness. LVEF is 45-50%. Stage I diastolic dysfunction. Right Ventricle The right ventricle is normal size. The right ventricular systolic function is normal. Atria The left atrium is borderline dilated. The right atrium size is normal. Aortic Valve The aortic valve is normal in structure. No aortic regurgitation is present. There is no aortic valvu lar stenosis. Mitral Valve The mitral valve is normal in structure. Mitral regurgitation is trace. There is no mitral valve sten osis. Tricuspid Valve The tricuspid valve is normal in structure. There is no tricuspid valve regurgitation noted. Pulmonic Valve The pulmonary valve is normal in structure. There is no pulmonic valvular regurgitation. Great Vessels The aortic root is normal in size. The IVC is normal in size and collapses >50% with inspiration. Pericardium There is no pericardial effusion. Conclusion LVEF is 45-50%. Regional wall motion abnormalities cannot be excluded. Stage I diastolic dysfunction. The aortic root is normal in size. There is no pericardial effusion.
[2025-04-23] MEDS: atorVAStatin 40 MG TABLET PO SCH (20:09)
[2025-04-24] VITALS: BP 152/72; PULSE 57; RESP 20; TEMP 98.8
[2025-04-24 04:00] VITALS: BP 127/58; PULSE 52; RESP 20; TEMP 98.2
--- NOTE | 2025-04-24 06:22 | NUR ---
TELE/AM LABS PT REFUSING TELE PLACEMENT AFTER SHOWER LAST NIGHT AND AM LABS. REFUSAL SIGNED FOR BOTH.
--- NOTE | 2025-04-24 06:35 | NUR ---
AMA PT AND SPOUSE WANTING TO LEAVE HOSPITAL AMA. EXPLAINED ADMITTING MD HAS NOT DISCHARGED THEM YET. SPOUSE STATED THEY ARE LEAVING NO MATTER WHAT SINCE SNOW [facility]ER WHO IS ALSO PT'S PRIMARY MD HAS ALREADY DISCHARGED MR GRANADOS. THIS NURSE ASKED PT IF HE WOULD SIGN AGAINST MEDICAL ADVICE FORM HE STATED HE WOULD. HE DID SIGN. INSTRUCTED PT TO PLEASE CALL AND SCHEDULE APPT WITH [facility] [facility] SOON HE CAN TO FOLLOW UP. HE STATED HE WOULD. SIGNED AMA FORM PLACED IN CHART.
== END 2025-04-24 06:49 | disposition left against medical advice (07) | DRG 280 ==
LOC: EDH 22:25 → EDHIP 04-23 00:50 → 3AH 04-23 02:40
PROVIDERS: ADMIT Internal Medicine; ATTEND Internal Medicine
DX: I21.4 Non-ST elevation (NSTEMI) myocardial infarction (principal); I50.43 Acute on chronic combined systolic (congestive) and diastolic (congestive) heart failure; I13.0 Hypertensive heart and chronic kidney disease with heart failure and stage 1 through stage 4 chronic kidney disease, or unspecified chronic kidney disease; N30.00 Acute cystitis without hematuria; E11.22 Type 2 diabetes mellitus with diabetic chronic kidney disease; E11.65 Type 2 diabetes mellitus with hyperglycemia; E66.9 Obesity, unspecified; E78.00 Pure hypercholesterolemia, unspecified; N18.2 Chronic kidney disease, stage 2 (mild); I25.5 Ischemic cardiomyopathy; F43.10 Post-traumatic stress disorder, unspecified; I25.10 Atherosclerotic heart disease of native coronary artery without angina pectoris; Z53.29 Procedure and treatment not carried out because of patient's decision for other reasons; Z95.5 Presence of coronary angioplasty implant and graft; I25.2 Old myocardial infarction; Z79.02 Long term (current) use of antithrombotics/antiplatelets; Z79.82 Long term (current) use of aspirin; Z79.84 Long term (current) use of oral hypoglycemic drugs; Z79.899 Other long term (current) drug therapy; Z86.73 Personal history of transient ischemic attack (TIA), and cerebral infarction without residual deficits; Z68.30 Body mass index [BMI] 30.0-30.9, adult
CPT/HCPCS: 36415; 71045; 76376; 80048; 80076; 81001; 82550; 82948; 83690; 83880; 84484; 85025; 85610; 85730; 87086; 87186; 93005; 93306; 93356; 99291; G0378; J0696; J1644; J1815; J1938; J3490